=== PATIENT | female | born 1940 | race African-American/Black ===

== ENCOUNTER 2017-07-31 16:28 | Emergency (ER) | payer MEDICARE, OTHER ==
[~2017-07-31] VITALS: Ht 172.7 cm; Wt 86.2 kg
[~2017-07-31 16:28] MED LIST: ACYCLOVIR400 MG ORAL; ATIVAN1 MG ORAL; BACTRIM DS TAB1 EAC1 ORAL; BACTROBAN 2% OI15 GM TOPIC; CYCLOBENZAPRINE10 MG ORAL; IBUPROFEN600 MG ORAL; KEFLEX500 MG ORAL; NKM; [UNRECOGNIZED DRUG - OTHER] ORAL; [UNRECOGNIZED DRUG - OTHER] PO; niacin ORAL; vitamin b12 ORAL
[2017-07-31] MEDS ORDERED: ROBAXIN-750750 MG PO (17:07)
[2017-07-31] MEDS ORDERED: NAPROXEN500 M1 ORAL (17:07)
--- NOTE | 2017-07-31 17:08 | Emergency Room Report ---
History of Present Illness General Chief Complaint: Pain Present Illness HPI 76 y/o female c/o bilateral upper arm pain x 2 months. Assoc sxs include muscular pain in proximal bilateral arms / shoulders that is worse with movement and better with accupuncture and ibuprofen. Not taking medications currently. Denies using ibuprofen currently because she doesn't want to be addicted to medication. Denies any trauma. Patient denies any neck pain, back pain, chest pain, shortness of breath, numbness, tingling, pressure, paralysis, cyanosis, bruising, loss of sensation, or loss of range of motion. (IESHA MARIA P.A.) Allergies: Coded Allergies: Carmi (Verified Allergy, Mild, Itching, 03/08/13) Pt gets Itchy tongue after eating walnuts Patient History Past Medical History: see triage record Past Surgical History: none Pertinent Family History: none Now: No Reviewed Nursing Documentation: PMH: Agreed, PSxH: Agreed (IESHA MARIA P.A.) Nursing Documentation-PMH Hx Diabetes: Yes - Pre diabetic Hx Cancer: No Hx Gastrointestinal Problems: No Hx Neurological Problems: Yes Hx Tremors: Yes - generalised on and off Hx Numbness: Yes - Soles both of feet and fingers on and off Hx Weakness: Yes - Weakness left leg Hx Fatigue: Yes (IESHA MARIA P.A.) Review of Systems All Other Systems: negative except mentioned in HPI (IESHA MARIA P.A.) Physical Exam Vital Signs Date Time Temp Pulse Resp B/P (MAP) Pulse Ox O2 Delivery O2 Flow Rate FiO2 07/31/17 16:41 98.1 64 20 155/75 97 Room Air Sp02 EP Interpretation: reviewed, normal General Appearance: no apparent distress, alert, GCS 15, non-toxic Head: normocephalic, atraumatic Eyes: bilateral eye normal inspection, bilateral eye PERRL ENT: hearing grossly normal, normal pharynx, no angioedema, normal voice Neck: full range of motion, no bony tend, supple/symm/no masses Respiratory: chest non-tender, lungs clear, normal breath sounds, speaking full sentences Cardiovascular #1: regular rate, rhythm, no edema Musculoskeletal: back normal, gait/station normal, normal range of motion, other - FROM with painful forward extension / rotation of the shoulder. Neg empty can, neg neers, neg sulcus, tender - bilateral upper deltoid / tricepts Neurologic: alert, oriented x3, responsive, motor strength/tone normal, sensory intact, speech normal Psychiatric: judgement/insight normal, memory normal, mood/affect normal, no suicidal/homicidal ideation Skin: normal color, no rash, warm/dry, well hydrated (IESHA MARIA P.A.) Medical Decision Making PA Attestation Dr. Sanchez my supervising physician with whom patient management has been discussed with. (IESHA MARIA P.A.) Medicare Attestation The history of Lu Siddiqi has been reviewed and management options for her have been examined and discussed by Donnie Sanchez. I have personally examined and interviewed the patient. (DONNIE SANCHEZ M.D.) Diagnostic Impression: Primary Impression: Bilateral arm pain Additional Impression: Muscle strain ER Course Pt. presents to the ED c/o shoulder pain Ddx considered but are not limited to strain, sprain, dislocation, contusion, adhesive capsulitis, fracture, shoulder impingement Vital signs: are WNL, pt. is afebrile H&PE are most consistent with shoulder strain ORDERS: none, diagnosis is clinical. ED INTERVENTIONS: None required at this time. DISCHARGE: At this time pt. is stable for d/c to home. Will provide printed patient care instructions, and any necessary prescriptions. Care plan and follow up instructions have been discussed with the patient prior to discharge. (IESHA MARIA P.A.) Last Vital Signs Date Time Temp Pulse Resp B/P (MAP) Pulse Ox O2 Delivery O2 Flow Rate FiO2 07/31/17 16:41 98.1 64 20 155/75 97 Room Air (IESHA MARIA P.A.) Disposition: HOME, SELF-CARE Condition: Stable Scripts Methocarbamol* (ROBAXIN-750*) 750 Mg Tablet 750 MG PO TID, #30 TAB 0 Refills Prov: IESHA MARIA P.A. 07/31/17 Naproxen* (NAPROXEN*) 500 Mg Tablet.dr 500 MG ORAL TWICE A DAY for 10 Days, #20 TAB Prov: IESHA MARIA P.A. 07/31/17 Patient Instructions: Muscle Strain Additional Instructions: Take medication as directed. Advise patient to use RICE therapy and avoid exercises for the next 2-3 weeks to help rest the shoulder. Patient instructed to massage the muscles that are tight or tense, put ice for 5-7 minutes or a frozen bag of peas or cold gel pack on the area for 20 minutes at a time, a few times a day, put heat on the area to reduce pain and stiffness by either taking a hot shower or hot bath, or put a hot towel on the area for no more than 20 minutes at a time. Patient instructed to not use anything too hot that could burn your skin. IESHA MARIA Jul 31, 2017 17:08 DONNIE SANCHEZ M.D. Aug 06, 2017 06:37
[2017-07-31 17:30] VITALS: BP 152/86
== END 2017-07-31 17:30 | disposition home or self-care (01) ==
LOC: EMR 17:04
DX: S46.812A Strain of other muscles, fascia and tendons at shoulder and upper arm level, left arm, initial encounter (principal); S46.811A Strain of other muscles, fascia and tendons at shoulder and upper arm level, right arm, initial encounter; X58.XXXA Exposure to other specified factors, initial encounter; Y92.9 Unspecified place or not applicable
CPT/HCPCS: 99283